=== PATIENT | male | born 1985 | race Caucasian/White ===

== ENCOUNTER 2020-06-28 19:47 | Emergency (ER) | payer OTHER ==
[~2020-06-28 19:47] MED LIST: BACTRIM DS TAB1 EACH PO; BACTROBAN NASAL1 G1; BACTROBAN OINT22 GM TOP; BETADINE30 ML TOP; HIBICLENS120 ML XX; PERCOCET 5-3251 EACH PO
[2020-06-29 01:18] LABS: RED BLOOD COUNT 5.01 M/UL (4.20-5.50)
[2020-06-29 01:37] LABS: BUN/CREATININE RATIO 11 (0-10)
[2020-06-29] MEDS ORDERED: VIBRAMYCIN100 MG PO (02:50)
[2020-06-29] MEDS ORDERED: OMNICEF 300 MG300 MG PO (02:50)
[2020-06-29] MEDS ORDERED: IBUPROFEN800 MG PO (02:50)
== END 2020-06-29 03:00 | disposition home or self-care (01) ==
LOC: ER1 19:47
PROVIDERS: Emergency Medicine
DX: S62.635A Displaced fracture of distal phalanx of left ring finger, initial encounter for closed fracture (principal); L03.012 Cellulitis of left finger; W20.8XXA Other cause of strike by thrown, projected or falling object, initial encounter
CPT/HCPCS: 73130; 80053; 85025; 85652; 86140; 99283; J0696